=== PATIENT | female | born 1990 | race Two or more races ===

== ENCOUNTER 2020-08-24 17:24 | Emergency (ER) | payer MEDICAID ==
[~2020-08-24] VITALS: Ht 160 cm; Wt 67.6 kg
--- NOTE | 2020-08-24 17:33 | NUR ---
called to triage,no answer
[2020-08-24 17:48] VITALS: BP 117/68
--- NOTE | 2020-08-24 18:22 | NUR ---
Patient discharged to home in stable condition. Written and verbal after care instructions given. Patient verbalizes understanding of instruction.
== END 2020-08-24 18:23 | disposition home or self-care (01) ==
LOC: ER 17:32
DX: M54.2 Cervicalgia (principal); G89.29 Other chronic pain; G43.909 Migraine, unspecified, not intractable, without status migrainosus

== ENCOUNTER 2020-08-25 17:46 | Emergency (ER) | payer MEDICAID ==
[~2020-08-25] VITALS: Ht 162.6 cm; Wt 72.1 kg
--- NOTE | 2020-08-25 17:58 | NUR ---
BIB SELF C/O NECK PAIN 10/10 RADIATING TO HER HEAD. TO ER BED 2, HOOKED TO MONITOR, VSS. AWAITING MD ALVARADO
--- NOTE | 2020-08-25 18:08 | NUR ---
GERARDO CASTLE AT BEDSIDE
[2020-08-25] MEDS ORDERED: DEXAMETHASONE SOD PHOSPHATE 10 MG/ML VIAL ONE (18:23)
[2020-08-25] MEDS ORDERED: DIAZEPAM 5 MG TABLET ONE (18:24)
--- NOTE | 2020-08-25 18:29 | NUR ---
PATIENT SIGNED WAIVER FORM, LMP 08/08/20. STATES "I'M NOT SEXUALLY ACTIVE"
[2020-08-25] MEDS ORDERED: DIAZEPAM 5 MG TABLET PO ONE (18:30)
[2020-08-25] MEDS ORDERED: DEXAMETHASONE SOD PHOSPHATE 4 MG/ML VIAL IM ONE (18:30)
[2020-08-25] MEDS ORDERED: KETOROLAC TROMETHAMINE INJ 60 MG/2 ML VIAL IM ONE (18:30)
[2020-08-25] MEDS ORDERED: KETOROLAC TROMETHAMINE INJ 30 MG/ML VIAL ONE (18:36)
--- NOTE | 2020-08-25 19:04 | NUR ---
SOFT COLLAR APPLIED TO PATIENT
--- NOTE | 2020-08-25 19:06 | NUR ---
REPORT GIVEN TO TALYA QUINTERO FOR MABERLY
--- NOTE | 2020-08-25 19:06 | NUR ---
Patient discharged to home in stable condition. Written and verbal after care instructions given. Patient verbalizes understanding of instruction.
[2020-08-25 19:07] VITALS: BP 116/81
== END 2020-08-25 19:08 | disposition home or self-care (01) ==
LOC: ER 17:52
DX: S13.8XXA Sprain of joints and ligaments of other parts of neck, initial encounter (principal); M54.12 Radiculopathy, cervical region; G89.29 Other chronic pain; X58.XXXA Exposure to other specified factors, initial encounter; Y93.89 Activity, other specified; Y92.89 Other specified places as the place of occurrence of the external cause; Y99.8 Other external cause status
CPT/HCPCS: 96372 ×2; 99284; J1100; J1885

== ENCOUNTER 2020-11-21 17:19 | Emergency (ER) | payer MEDICAID ==
[~2020-11-21] VITALS: Ht 165.1 cm; Wt 62.1 kg
[2020-11-21 17:27] VITALS: BP 118/73
[2020-11-21] MEDS ORDERED: TDAP [DIPH/PERTUSSIS/TET] 0.5 ML VIAL IM ONE ×2 (17:53→18:00)
[2020-11-22] MEDS ORDERED: ONDA4TAB5 PO (15:46)
== END 2020-11-21 18:03 | disposition home or self-care (01) ==
LOC: EDBD → ER 17:33
DX: S01.01XA Laceration without foreign body of scalp, initial encounter (principal); S09.8XXA Other specified injuries of head, initial encounter; M54.2 Cervicalgia; G89.29 Other chronic pain; R51.9 Headache, unspecified; W22.8XXA Striking against or struck by other objects, initial encounter; Y93.89 Activity, other specified; Y92.89 Other specified places as the place of occurrence of the external cause; Y99.8 Other external cause status
CPT/HCPCS: 90715

== ENCOUNTER 2020-11-22 14:14 | Emergency (ER) | payer MEDICAID ==
[~2020-11-22] VITALS: Ht 165.1 cm; Wt 62.1 kg
--- NOTE | 2020-11-22 14:32 | NUR ---
SEEN AND EXAMINED BY .
--- NOTE | 2020-11-22 15:20 | NUR ---
PT IS WHEELED TO CT SCAN VIA [facility].
[2020-11-22] MEDS ORDERED: ONDA4TAB5 PO (15:46)
--- NOTE | 2020-11-22 15:53 | NUR ---
Patient discharged to home in stable condition. Written and verbal after care instructions given. Patient verbalizes understanding of instruction. Pt ambulatory with a steady gait
[2020-11-22 15:59] VITALS: BP 129/88
== END 2020-11-22 15:59 | disposition home or self-care (01) ==
LOC: ER 14:15 → EDBD 14:15 → ER 15:59
DX: S01.01XA Laceration without foreign body of scalp, initial encounter (principal); F07.81 Postconcussional syndrome; F41.9 Anxiety disorder, unspecified; W20.8XXA Other cause of strike by thrown, projected or falling object, initial encounter; Y93.89 Activity, other specified; Y92.89 Other specified places as the place of occurrence of the external cause; Y99.8 Other external cause status
CPT/HCPCS: 70450-TC; 84703-TC

== ENCOUNTER 2021-02-10 21:01 | Emergency (ER) | payer MEDICAID ==
[~2021-02-10] VITALS: Ht 165.1 cm; Wt 70.3 kg
[~2021-02-10 21:01] MED LIST: ONDA4TAB5 PO
--- NOTE | 2021-02-10 21:35 | NUR ---
PT BIBSELF C/O BRIGHT RED BLOOD AFTER WIPING S/P BM. PT AAOX4 BREATHING EVENLY AND UNLABORED. PT ATTACHED TO MONITOR AND POX. PT GIVEN BLANKET AND CALL LIGHT WITHIN REACH
[2021-02-10] MEDS ORDERED: HYDR30CR79 TP (22:49)
[2021-02-10] MEDS ORDERED: DOCU-141 PO (22:49)
--- NOTE | 2021-02-10 22:50 | NUR ---
PT NEW COMPLAINT OF CP. AWARE AND EMT AT BEDSIDE FOR EKG
[2021-02-10] MEDS ORDERED: IBUPROFEN 400 MG TABLET ONE (22:58)
[2021-02-10] MEDS ORDERED: IBUPROFEN 400 MG TABLET PO ONE (23:00)
--- NOTE | 2021-02-10 23:03 | NUR ---
XRAY AT BEDSIDE
--- NOTE | 2021-02-10 23:33 | NUR ---
Patient discharged to home in stable condition. Written and verbal after care instructions given. Patient verbalizes understanding of instruction. PT ambulatory with steady gait
[2021-02-10 23:37] VITALS: BP 120/89
== END 2021-02-10 23:33 | disposition home or self-care (01) ==
LOC: ER 21:01
DX: K60.2 Anal fissure, unspecified (principal); R07.89 Other chest pain; G89.29 Other chronic pain; Z79.899 Other long term (current) drug therapy
CPT/HCPCS: 71045-TC

== ENCOUNTER 2021-06-18 11:32 | Emergency (ER) | payer MEDICAID ==
[~2021-06-18] VITALS: Ht 165.1 cm; Wt 72.6 kg
[~2021-06-18 11:32] MED LIST changes: +DOCU-141 PO; +HYDR30CR79 TP
--- NOTE | 2021-06-18 12:50 | NUR ---
THE PATIENT BIBS DUE TO TESTED + FOR COVID YESTERDAY, L SIDED CHEST PAIN STARTED THIS MORNING. WEAKNESS, SOB AND DIARRHEA SINCE YESTERDAY. RATES CHEST PAIN 5/10. IN ROOM AIR AND DENIES SOB. RESPIRATION REGULAR AND UNLABORED. WILL CONTINUE TO MONITOR THE PATIENT.
[2021-06-18 15:25] VITALS: BP 117/67
--- NOTE | 2021-06-18 15:25 | NUR ---
Patient discharged to home in stable condition. Written and verbal after care instructions given. Patient verbalizes understanding of instruction.
== END 2021-06-18 15:25 | disposition home or self-care (01) ==
LOC: ER 11:35
DX: U07.1 COVID-19 (principal); R07.89 Other chest pain; G89.29 Other chronic pain; M54.2 Cervicalgia; R51.9 Headache, unspecified; Z79.899 Other long term (current) drug therapy
CPT/HCPCS: 71045-TC

== ENCOUNTER 2022-05-20 15:41 | Emergency (ER) | payer MEDICAID ==
[~2022-05-20] VITALS: Ht 165.1 cm; Wt 72.6 kg
[2022-05-20 15:55] VITALS: BP 128/85
== END 2022-05-20 16:23 | disposition home or self-care (01) ==
LOC: ER 15:45
DX: G89.29 Other chronic pain (principal); M54.2 Cervicalgia; H52.531 Spasm of accommodation, right eye; Z87.19 Personal history of other diseases of the digestive system; Z79.899 Other long term (current) drug therapy

== ENCOUNTER 2022-08-01 16:02 | Emergency (ER) | payer MEDICAID ==
[~2022-08-01] VITALS: Ht 162.6 cm; Wt 63.5 kg
[2022-08-01] MEDS ORDERED: KETOROLAC TROMETHAMINE 15 MG/ML VIAL ONE (17:13)
[2022-08-01] MEDS ORDERED: PROCHLORPERAZINE EDISYLATE 10 MG/2 ML VIAL ONE (17:13)
--- NOTE | 2022-08-01 17:28 | NUR ---
IV LINE ESTABLISHED ON LAC #20, BLOOD DRAWN AND SENT TO LAB
[2022-08-01 17:30] LABS: BASOPHILS % (AUTO) 0.3 % (0.0-2.0); EOSINOPHILS % (AUTO) 0.4 % (0.0-6.0); HEMATOCRIT 41 % (33-45); HEMOGLOBIN 13.8 g/dL (11.5-14.8); LYMPHOCYTES % (AUTO) 15.5 % (20.0-44.0); MEAN CORPUSCULAR HGB CONC 33 g/dl (31.0-36.0); MEAN CORPUSCULAR VOLUME 82 fL (82-100); MONOCYTES # (AUTO) 0.4 K/uL (0.1-1.30); MONOCYTES % (AUTO) 5.7 % (2.0-12.0); NEUTROPHILS # (AUTO) 4.9 K/uL (1.8-8.9); NEUTROPHILS % (AUTO) 78.1 % (43.0-81.0); PLATELET COUNT (AUTO) 375 K/uL (150-450); RED BLOOD CELL COUNT(AUTO) 5.08 MIL/uL (4.0-5.2); WHITE BLOOD COUNT (AUTO) 6.2 K/uL (4.3-11.0)
[2022-08-01] MEDS ORDERED: IV NS 0.9% 1,000 ML BAG IV ONE (17:30)
[2022-08-01] MEDS ORDERED: KETOROLAC TROMETHAMINE INJ 30 MG/ML VIAL IV ONE (17:30)
[2022-08-01] MEDS ORDERED: PROCHLORPERAZINE EDISYLATE 10 MG/2 ML VIAL IVP ONE (17:30)
--- NOTE | 2022-08-01 17:31 | NUR ---
PT DENIES BEING . OK FOR TORADOL IVP.
[2022-08-01 17:37] LABS: CREATININE 0.7 mg/dL (0.6-1.3); POTASSIUM 4.2 mmol/L (3.5-5.1)
[2022-08-01 17:43] LABS: ALBUMIN 3.7 g/dL (3.4-5.0); BILIRUBIN,DIRECT 0.1 mg/dL (0.0-0.2); BILIRUBIN,TOTAL 0.5 mg/dL (0.2-1.0); TOTAL PROTEIN, SERUM 7.8 g/dL (6.4-8.2)
[2022-08-01 18:22] LABS: BILIRUBIN,URINE NEGATIVE (NEGATIVE); COLOR,URINE YELLOW (YELLOW); LEUKOCYTE ESTERASE ,URINE NEGATIVE (NEGATIVE); NITRITE, URINE NEGATIVE (NEGATIVE); PROTEIN,URINE NEGATIVE (NEGATIVE); UGLUCOSE NEGATIVE (NEGATIVE); UROBILINOGEN,URINE 0.2 EU/dL (0.2)
--- NOTE | 2022-08-01 19:00 | NUR ---
pt requested to leave against medical advise. notified
[2022-08-01] MEDS ORDERED: ONDA4TAB5 PO (19:01)
[2022-08-01 19:02] LABS: BACTERIA,URINE None seen /HPF (None Seen); SQUAMOUS EPITHELIAL CELL,UR 0-2 /HPF (None Seen); WBC,URINE 0-2 /HPF (0-3)
--- NOTE | 2022-08-01 19:11 | NUR ---
Patient discharged to home in stable condition. Written and verbal after care instructions given. Patient verbalizes understanding of instruction.
--- NOTE | 2022-08-01 19:11 | NUR ---
IV removed. Catheter intact and site benign. Pressure and 4x4 applied to site. No bleeding noted.
[2022-08-01 19:15] VITALS: BP 120/75
== END 2022-08-01 19:16 | disposition home or self-care (01) ==
LOC: ER 16:02
DX: G43.109 Migraine with aura, not intractable, without status migrainosus (principal); G89.29 Other chronic pain; M54.2 Cervicalgia; R11.2 Nausea with vomiting, unspecified; Z79.899 Other long term (current) drug therapy
CPT/HCPCS: 99284; 96374; 96361; 96375; 85025; 80048; 80076; 84703; 81001; 36415; J0780; J7030; J1885

== ENCOUNTER 2022-08-20 18:49 | Emergency (ER) | payer MEDICAID ==
[~2022-08-20] VITALS: Ht 165.1 cm; Wt 63.5 kg
--- NOTE | 2022-08-20 20:14 | NUR ---
BIBS C/O BLOOD IN URINE X 3 DAYS. PT IS ALERT AND ORIENTED. RR EVEN AND NON LABORED. AMBULATORY WITH STEADY GAIT. CONNECTED TO MONITOR. AWAITING MD ALVARADO
--- NOTE | 2022-08-20 20:15 | NUR ---
URINE SAMPLE COLLECTED AND SENT TO LAB
[2022-08-20 20:50] LABS: BILIRUBIN,URINE NEGATIVE (NEGATIVE); COLOR,URINE YELLOW (YELLOW); LEUKOCYTE ESTERASE ,URINE NEGATIVE (NEGATIVE); NITRITE, URINE NEGATIVE (NEGATIVE); PH,URINE 5.5 (5.0-8.0); PROTEIN,URINE NEGATIVE (NEGATIVE); UGLUCOSE NEGATIVE (NEGATIVE); UROBILINOGEN,URINE 0.2 EU/dL (0.2)
[2022-08-20 21:01] LABS: BACTERIA,URINE 1+ /HPF (None Seen)
[2022-08-20 21:53] LABS: BASOPHILS % (AUTO) 0.3 % (0.0-2.0); EOSINOPHILS % (AUTO) 0.3 % (0.0-6.0); HEMATOCRIT 43 % (33-45); HEMOGLOBIN 13.7 g/dL (11.5-14.8); LYMPHOCYTES # (AUTO) 1.8 K/uL (0.8-4.8); LYMPHOCYTES % (AUTO) 24.7 % (20.0-44.0); MEAN CORPUSCULAR HGB CONC 32 g/dl (31.0-36.0); MEAN CORPUSCULAR VOLUME 82 fL (82-100); MONOCYTES # (AUTO) 0.4 K/uL (0.1-1.30); MONOCYTES % (AUTO) 6.1 % (2.0-12.0); NEUTROPHILS # (AUTO) 5.1 K/uL (1.8-8.9); NEUTROPHILS % (AUTO) 68.6 % (43.0-81.0); PLATELET COUNT (AUTO) 259 K/uL (150-450); RED BLOOD CELL COUNT(AUTO) 5.21 MIL/uL (4.0-5.2); WHITE BLOOD COUNT (AUTO) 7.4 K/uL (4.3-11.0)
[2022-08-20 22:14] LABS: CALCIUM, SERUM 9.1 mg/dL (8.5-10.1); CREATININE 0.7 mg/dL (0.6-1.3); POTASSIUM 3.5 mmol/L (3.5-5.1)
--- NOTE | 2022-08-20 22:25 | NUR ---
Patient discharged to home in stable condition. Written and verbal after care instructions given. Patient verbalizes understanding of instruction.
[2022-08-20 22:34] VITALS: BP 116/81
== END 2022-08-20 22:34 | disposition home or self-care (01) ==
LOC: ER 19:08
DX: R31.9 Hematuria, unspecified (principal); G89.29 Other chronic pain; Z79.899 Other long term (current) drug therapy
CPT/HCPCS: 36415; 76770-TC; 80048-TC; 81001; 84703-TC; 85025-TC